=== PATIENT | female | born 1985 | race American Indian/Alaskan Native ===

== ENCOUNTER 2018-01-08 05:44 | Day surgery (SDC) | payer OTHER ==
[2018-01-01 09:19] VITALS: BMI 44.7
[2018-01-08 06:40] VITALS: O2SAT 100
[2018-01-08] MEDS ORDERED: Propofol 10 mg/ml Inj (20 ML) ONE (07:30)
[2018-01-08] MEDS ORDERED: Midazolam 2 MG/2 ML VIAL ONE (07:30)
[2018-01-08] MEDS ORDERED: Succinylcholine Chloride 20 mg/ml Syr (5 ml) IV ONE (07:32)
[2018-01-08] MEDS ORDERED: Phenylephrine 10 mg/ml Inj ONE ×2 (07:33→08:18)
[2018-01-08] MEDS ORDERED: Bupivacaine 0.25% 20 ML INJ IJ ONE (07:39)
[2018-01-08] MEDS ORDERED: cefOXitin IV 2 gm in Dextrose 2 GM/50 ML BAG IVPB ONE (07:40)
[2018-01-08] MEDS ORDERED: Rocuronium 10 mg/ml (5 ml) ONE (08:00)
[2018-01-08] MEDS ORDERED: Neostigmine Methylsulfate 3mg/3ml Syringe IV ONE (08:07)
[2018-01-08] MEDS ORDERED: HYDROmorphone 0.5 mg/0.5 ml ISec IVP PRN (08:49)
[2018-01-08 10:42] VITALS: RESP 20
[2018-01-08 11:04] VITALS: BP 112/64; PULSE 80; TEMP 98
--- NOTE | 2018-01-09 06:58 | OP ---
Copied To: Jaime Esposito MD Attending MD: Jaime Esposito MD PROCEDURE DATE: 01/08/2018 PREOPERATIVE DIAGNOSES: Diffuse pelvic pain, menorrhagia. POSTOPERATIVE DIAGNOSES: Bilateral polycystic ovaries, left endometriotic implant. SURGEON: Jaime Esposito MD GENERAL ACCOUNTING CLERK: Mike Jc MD ESTIMATED BLOOD LOSS: Less than 1 mL. COMPLICATIONS: Nil. DESCRIPTION OF PROCEDURE: After the risks, benefits, and alternatives of the planned procedures including but not limited to infection, hemorrhage, deep venous thrombosis, atelectasis, pneumonia, pulmonary embolism, damage to bladder, damage to ureter, renal insufficiency, renal failure, wound infection, wound dehiscence, incisional hernia, keloid formation, damage to large and small intestines, damage to inferior vena cava and aorta, requiring extensive repair, anesthesia complications, electrolyte imbalance, possibility of , fluid overloads, fibroid, ME, embolism, and other complications that were discussed, but are not listed above, had been explained to the patient and all her questions were answered. Informed consent was obtained. Patient was taken to the operating room in a stable condition. Under acceptable level of general anesthesia, she was prepped and draped in a sterile fashion after having been placed in a dorsal lithotomy position. Thorpe catheter was inserted. Examination under anesthesia revealed a normal size uterus, anteverted with no adnexal masses. A weighted speculum was inserted into the vagina. The anterior lip of the cervix was grasped using single-tooth retinaculum. Endocervical curettage was performed and scant tissue was obtained. Uterus was sounded to 7 cm. The cervix was dilated with #18 Hanks dilator. An endometrial curettage was performed and scant tissue was obtained. A HUMI catheter was inserted into the cervix and insufflated into place. A 5-mm left upper quadrant Pickard's point incision and 5 mm trocar and sleeve was inserted under laparoscopic guidance. A pneumoperitoneum of 3 L was created. A 5-mm puncture site was made 3 fingerbreadths above the pubis symphysis region. A 5 mm trocar and sleeve was inserted. Trocar was removed and replaced by a bipolar cautery which was used to fulgurate the left ovarian endometriotic implant. At the end of the procedure, peritoneal cavity was irrigated using copious amounts of saline. The saline was evacuated. The uterus and fallopian tubes were normal. Right ovary was also polycystic. The suprapubic sleeve was removed under laparoscopic guidance. The abdomen was deflated off carbon dioxide and the left upper quadrant sleeve was removed under laparoscopic guidance. Skin incisions were than closed using 4-0 Monocryl. Estimated blood loss of the procedure was less than 1 mL. Sponge, needle, and instrument counts are correct x2. There were no complications. Jaime Esposito MD
== END 2018-01-08 11:10 | disposition home or self-care (01) ==
LOC: C.SDS 05:44
PROVIDERS: ATTEND Obstetrics & Gynecology Reproductive Endocrinology
DX: E28.2 Polycystic ovarian syndrome (principal); N83.01 Follicular cyst of right ovary; N92.0 Excessive and frequent menstruation with regular cycle
CPT/HCPCS: 36415; 58120; 58662; 86850; 86900; 88305; J0694; J1100; J2001; J2250; J2370; J2405; J2704; J2710; J2765; J3010